=== PATIENT | female | born 1985 | race Caucasian/White ===

== ENCOUNTER → 2021-05-14 03:17 | Outpatient (CLI) | payer OTHER, SELFPAY ==
[2021-05-14 20:47] LABS: SARS-CoV-2 RNA PCR Negative
== END ==
PROVIDERS: Visit Provider Obstetrics & Gynecology Gynecologic Oncology
DX: Z01.812 Encounter for preprocedural laboratory examination (principal); Z20.822 Contact with and (suspected) exposure to COVID-19
CPT/HCPCS: C9803; U0003; U0005

== ENCOUNTER 2021-05-14 09:20 | Outpatient (CLI) | payer OTHER, SELFPAY ==
[2021-05-14 09:51] LABS: Hematocrit 36.7 % (37.0-47.0); Hemoglobin 12.4 g/dL (12.0-15.0); Mean Corpuscular HGB Conc 33.8 g/dl (32-36); Mean Corpuscular Volume 91.8 fl (80-100); Mean Platelet Volume 9.8 fl (7.4-10.4); Platelet Count Result 253 k/mm3 (150-375); Red Cell Distribution Width 12.6 % (11.5-14.5)
== END 2021-05-14 09:21 | disposition home or self-care (01) ==
LOC: ANHSURGERY 09:31
PROVIDERS: Visit Provider Obstetrics & Gynecology Gynecologic Oncology
DX: R10.2 Pelvic and perineal pain (principal)
CPT/HCPCS: 36415; 85027; 86850; 86900; 86901; C9803; U0003; U0005

== ENCOUNTER 2021-05-17 02:22 | Day surgery (SDC) | payer OTHER, SELFPAY ==
[2021-05-10 08:42] VITALS: BMI 26.5
[2021-05-17] VITALS (9 sets, daily range): BP systolic 126–145; BP diastolic 65–93; PULSE 53–86; RESP 12–20; TEMP 36.1–36.4; O2SAT 99–100
--- NOTE | 2021-05-17 12:17 | PM.IMHP ---
H&P: HPI History of Present Illness Date/Time: 05/17/21 12:17 Chief Complaint: I'm here for my surgery Narrative: She presents for diagnostic laparoscopy, bilateral salpingectomy, bilateral ovarian drilling for PCOS and pelvic pain. FOR[facility]LY [facility] Past Medical History Medical History (Updated 05/17/21 @ 12:19 by Emili Doss DO) PCOS (polycystic ovarian syndrome) Pelvic pain Social History Social History Smoking packs per day: 1 Smoking cigarettes per day: 20.0 Years smoked: 24 Smoking pack-years: 24.00 Smoking status: Current every day smoker Tobacco type: cigarettes Alcohol intake: current Living arrangements: with family Spiritual care concerns: No Meds Home Medications and Allergies Home Medications Medication Instructions Recorded Confirmed Type metformin 500 mg PO BID 05/10/21 05/10/21 History Allergies Allergy/AdvReac Type Severity Reaction Status Date / Time vancomycin Allergy Severe Rash Verified 05/10/21 08:41 venom-wasp Allergy Severe Anaphylactic Verified 05/10/21 08:41 Shock Exam Narrative: See office exam notes Assessment and Plan Assessment and plan (1) PCOS (polycystic ovarian syndrome): Code(s): E28.2 - Polycystic ovarian syndrome Status: Acute (2) Pelvic pain: Code(s): R10.2 - Pelvic and perineal pain Status: Acute (3) Encounter for sterilization: Code(s): Z30.2 - Encounter for sterilization Status: Acute
[2021-05-17] MEDS: ACETAMINOPHEN 500 MG TABLET 1000 MG PO (12:20)
--- NOTE | 2021-05-17 12:20 | WPDANESEPPF ---
Anes - Initial Pre Proc Eval Procedure: Operation Date: 05/17/21 14:00 Proposed Procedures p Diagnostic Laparoscopy, Bilateral Ovarian Drilling, Bilateral Laparoscopic Salpingectomy - Emili Doss DO Date/Time: 05/17/21 12:20 Surgeon: Emili Doss DO Pre Op Diagnosis: pelvic pain, pcls Patient Data Age: 36 Gender: F Height: 1.57 m Weight: 65.9 kg Allergies Allergy/AdvReac Type Severity Reaction Status Date / Time vancomycin Allergy Severe Rash Verified 05/10/21 08:41 venom-wasp Allergy Severe Anaphylactic Verified 05/10/21 08:41 Shock Home Medications Medication Instructions Recorded Confirmed Type metformin 500 mg PO BID 05/10/21 05/10/21 History Patient hx anesthesia problems: none Family hx anesthesia problems: none [facility] Past Medical History Medical History (Updated 05/17/21 @ 12:19 by Emili Doss DO) PCOS (polycystic ovarian syndrome) Pelvic pain Social History Social History Smoking packs per day: 1 Smoking cigarettes per day: 20.0 Years smoked: 24 Smoking pack-years: 24.00 Smoking status: Current every day smoker Tobacco type: cigarettes Alcohol intake: current Living arrangements: with family Spiritual care concerns: No Anes - Eval Final PreProcedure Day of Procedure 05/17/21 12:20 Patient weight: overweight Heart: regular rate and rhythm Lungs: clear to auscultation and normal air movement Airway: Mallampati scale class II Neurological: alert and oriented Last oral intake: >/= 8 hours ASA classification: II Emergent: no Anesthetic plan: proceed Anesthesia type and monitoring: general ETT Informed Consent: The patient's anesthetic plan and its attendant risks and benefits were discussed with the patient/family/POA. Questions were solicited and answers provided to the satisfaction of the patient/family/POA.
[2021-05-17] MEDS: KETOROLAC 15 MG/ML VIAL (*BKC) IV PUSH (12:25)
[2021-05-17] MEDS: LACTATED RINGERS 1,000 ML 30 ML IV CONT ×2 (12:25→15:36)
--- NOTE | 2021-05-17 12:53 | WPDHPUPDATE1 ---
History and Physical Update Update Date/Time: 05/17/21 12:53 History and Physical has been reviewed, including an updated exam of the patient. There are NO changes in the patient's condition. Risks, benefits, and alternatives have been discussed and questions answered. Patient agrees to proceed with procedure.
--- NOTE | 2021-05-17 13:17 | SUR.PREOP ---
1315-PT AWARE SURGEON DELAYS SELF MINIMUM OF 1 HOUR.
[2021-05-17] MEDS: BUPIVACAINE/EPINEPHRINE 0.25% 50 ML VIAL 10 ML INFILTRATE (15:14)
--- NOTE | 2021-05-17 15:33 | W.PM.PROC2 ---
Procedure Note - Detailed Date of Procedure 05/17/21 Pre-op Diagnosis pelvic pain, PCOS, desires sterilization Post-op Diagnosis other (Extensive adhesions from the uterus to the anterior abdominal wall) Procedure Performed Diagnostic laparoscopy, bilateral salpingectomy, bilateral ovarian drilling Surgeon Emili Doss DO [employer] Anesthesia general Indications PCOS, pelvic pain Findings Normal appearing vulva and vaginal canal. Cervix small, somewhat flush with vagina and deviated to face the posterior wall of the vagina. Internally, the ovaries were polycystic in appearance. The left tube appeared normal, the right tube had fimbriae stretched across and adhered to the ovary. The uterus was completely plastered to the anterior abdominal wall from the fundus all the way down. Description of Procedure The patient was taken to the operating room where she was placed under general anesthesia. She was prepped and draped in the normal sterile fashion in a dorsal lithotomy position. No preoperative antibiotics were indicated. A timeout was performed. A speculum was placed in the vagina and a tenaculum was used to grasp the cervix. An Jacumba uterine manipulator was placed. Gloves were changed and attention was turned to the abdomen. The skin under the umbilicus was grasped with penetrating towel clamps and injected with local. An incision was made and a Veress needle introduced. A saline water droplet test was performed and then CO2 insufflation was started. The abdomen was brought up to 15 mmg Hg and the Veress needle was replaced with a 5 mm Optiview trocar. Survey of the abdomen revealed no evidence of bowel or vascular injury. The patient was placed in steep Trendelenburg position. The uterus was noted to be completely adhered to the anterior abdominal wall. The ovaries were both polycystic in appearance. The left tube was normal. The right tube was somewhat tortuous and the fimbriae were stretched over the ovary and adhered. The tubes were removed with the Ligasure. The remaining fimbriae adhesions on the right ovary were cauterized. Ovarian drilling was performed bilaterally with the monopolar hook attached to the cautery. All areas of dissection were noted to be hemostatic. The instruments were removed and CO2 was allowed to escape from the abdomen. The trocars were removed and the port sites closed with subcuticular 4-0 monocryl. The manipulator and tenaculum were removed. The patient was taken to the recovery room in stable condition. All instrument and sponge counts were correct at the conclusion of the procedure. Estimated Blood Loss 2 IV Fluids 1,000 Drains No Packing No Pathology yes Complications None Condition stable Disposition PACU
[2021-05-17] MEDS: fentaNYL CITRATE INJ (*CRX) 100 MCG/2 ML VIAL 25 MCG IV PUSH (16:01)
[2021-05-17] MEDS: oxyCODONE HCL (*CRX) 5 MG TAB IR PO (17:02)
== END 2021-05-17 17:40 | disposition home or self-care (01) ==
PROVIDERS: Visit Provider Obstetrics & Gynecology Gynecologic Oncology
PROC: (CPT 49320; principal; 2021-05-17 14:00)
DX: R10.2 Pelvic and perineal pain (principal); E28.2 Polycystic ovarian syndrome; Z30.2 Encounter for sterilization; N73.6 Female pelvic peritoneal adhesions (postinfective); F17.210 Nicotine dependence, cigarettes, uncomplicated; Z79.84 Long term (current) use of oral hypoglycemic drugs
CPT/HCPCS: 58999; 58661; 88302; A9270; J1100; J1885; J2250; J2405; J2704; J2710; J3010; J7030; J7120